=== PATIENT | male | born 1970 | race Caucasian/White ===

== ENCOUNTER 2019-12-08 15:33 | Emergency (ER) | payer OTHER ==
[~2019-12-08] VITALS: Ht 172.7 cm; Wt 104.3 kg
--- NOTE | 2019-12-08 16:10 | Emergency Room Report ---
History of Present Illness General Chief Complaint: Abdominal Pain Source: Patient Present Illness HPI Patient presents with complaints of right lower abdominal pain Reports that he had contacted the [place] triage line and told about possible appendix infection Pain started around 11:00 about 5 hours prior to arrival Patient reports vomiting denies any diarrhea Reports that he has had kidney stones in the past however this feels different and localized to the right lower quadrant denies any testicular pain denies any dysuria frequency denies any trauma Allergies: Coded Allergies: ASPIRIN (Verified Allergy, Unknown, 12/08/19) Patient History Past Medical History: see triage record Reviewed Nursing Documentation: PMH: Agreed; PSxH: Agreed Nursing Documentation-PMH Hx Gastrointestinal Problems: No - kidney stones Review of Systems All Other Systems: negative except mentioned in HPI Physical Exam Vital Signs Date Time Temp Pulse Resp B/P (MAP) Pulse Ox O2 Delivery O2 Flow Rate FiO2 12/08/19 15:50 97.9 69 18 153/80 (104) 97 Room Air Sp02 EP Interpretation: reviewed, normal General Appearance: mild distress - In pain Head: normocephalic, atraumatic Eyes: bilateral eye PERRL, bilateral eye EOMI ENT: EOM grossly intact Neck: supple, no bony tend Respiratory: lungs clear, no respiratory distress, no retraction Cardiovascular #1: regular rate, rhythm Gastrointestinal: non tender - However subjectively points to the right lower quadrant, no mass, no bruit, no guarding, no pulsatile mass, no rebound Genitourinary: no CVA tenderness Musculoskeletal: normal inspection Neurologic: alert, oriented x3 Psychiatric: normal inspection Skin: no rash Lymphatic: normal inspection Medical Decision Making Diagnostic Impression: Primary Impression: Renal colic on right side ER Course With the history exam and presentation, multiple differentials considered, including but not limited to appendicitis, gastritis, cholecystitis, diverticulitis Patient's blood work shows a mildly elevated white blood cell count given the patient's history of kidney stones kidney stone also considered highly CT imaging at this time does confirm to stones in the urethral area the larger one more distal left 5 mm Patient has received further hydration and pain medicine On repeat evaluation is pain-free and feels significantly improved patient is being followed for previous kidney stones at the [place] as well Copy of his records were provided patient remains afebrile nonseptic nontoxic appearing and will have initial conservative outpatient trial Labs Test 12/08/19 16:17 White Blood Count 12.4 K/UL (4.8-10.8) Red Blood Count 5.11 M/UL (4.70-6.10) Hemoglobin 14.5 G/DL (14.2-18.0) Hematocrit 46.9 % (42.0-52.0) Mean Corpuscular Volume 92 FL (80-99) Mean Corpuscular Hemoglobin 28.4 PG (27.0-31.0) Mean Corpuscular Hemoglobin Concent 31.0 G/DL (32.0-36.0) Red Cell Distribution Width 12.9 % (11.6-14.8) Platelet Count 193 K/UL (150-450) Mean Platelet Volume 11.6 FL (6.5-10.1) Neutrophils (%) (Auto) 76.3 % (45.0-75.0) Lymphocytes (%) (Auto) 14.0 % (20.0-45.0) Monocytes (%) (Auto) 6.2 % (1.0-10.0) Eosinophils (%) (Auto) 2.6 % (0.0-3.0) Basophils (%) (Auto) 1.0 % (0.0-2.0) Urine Color Yellow Urine Appearance Clear Urine pH 6.5 (4.5-8.0) Urine Specific [place] 1.025 (1.005-1.035) Urine Protein 2+ (NEGATIVE) Urine Glucose (UA) Negative (NEGATIVE) Urine Ketones Negative (NEGATIVE) Urine Blood 1+ (NEGATIVE) Urine Nitrite Negative (NEGATIVE) Urine Bilirubin Negative (NEGATIVE) Urine Urobilinogen Normal MG/DL (0.0-1.0) Urine Leukocyte Esterase 1+ (NEGATIVE) Urine RBC 0-2 /HPF (0 - 0) Urine WBC 0-2 /HPF (0 - 0) Urine Squamous Epithelial Cells None /LPF (NONE/OCC) Urine Transitional Epithelial Cells /LPF (NONE) Urine Calcium Carbonate Crystals /LPF (NONE) Urine Calcium Oxalate Crystals Few /LPF (NONE) Urine Bacteria Few /HPF (NONE) Sodium Level 139 MMOL/L (136-145) Potassium Level 4.1 MMOL/L (3.5-5.1) Chloride Level 103 MMOL/L (98-107) Carbon Dioxide Level 24 MMOL/L (21-32) Anion Gap 12 mmol/L (5-15) Blood Urea Nitrogen 20 mg/dL (7-18) Creatinine 1.3 MG/DL (0.55-1.30) Estimat Glomerular Filtration Rate 58.4 mL/min (>60) Glucose Level 135 MG/DL (74-106) Calcium Level 8.9 MG/DL (8.5-10.1) Total Bilirubin 0.3 MG/DL (0.2-1.0) Aspartate Amino Transf (AST/SGOT) 20 U/L (15-37) Alanine Aminotransferase (ALT/SGPT) 36 U/L (12-78) Alkaline Phosphatase 86 U/L (46-116) Total Protein 7.9 G/DL (6.4-8.2) Albumin 3.8 G/DL (3.4-5.0) Globulin 4.1 g/dL Albumin/Globulin Ratio 0.9 (1.0-2.7) Lipase 110 U/L (73-393) CT/MRI/US Diagnostic Results CT/MRI/US Diagnostic Results : Impression CT abdomen pelvisIMPRESSION: Two stones in the distal right ureter, the more distal measuring 5 mm and the more proximal measuring 3 mm. Resulting mild-moderate hydroureteronephrosis. Bilateral intrarenal stones. Last Vital Signs Date Time Temp Pulse Resp B/P (MAP) Pulse Ox O2 Delivery O2 Flow Rate FiO2 12/08/19 15:50 97.9 69 18 153/80 (104) 97 Room Air Status: improved Disposition: HOME, SELF-CARE Condition: Improved Scripts Tamsulosin HCl (Flomax) 0.4 Mg Cap.er.24h 0.4 MG ORAL DAILY for 7 Days, CAP Prov: Zack Mario DO 12/08/19 Hydrocodone Bit/Acetaminophen 5-325* (NORCO 5-325*) 1 Each Tablet 1 TAB ORAL Q6H PRN for For Pain, #10 TAB 0 Refills Prov: Zack Mario DO 12/08/19 Ibuprofen* (MOTRIN*) 600 Mg Tablet 600 MG ORAL Q8H PRN for For Pain, #20 TAB 0 Refills Prov: Zack Mario DO 12/08/19 Additional Instructions: Patient is provided with the discharge instructions notified to follow up with primary doctor in the next 2-3 days otherwise return to the er with any worsening symptoms. Please note that this report is being documented using [employer] technology. This can lead to erroneous entry secondary to incorrect interpretation by the dictating instrument. Zack Mario DO Dec 08, 2019 16:10
[2019-12-08] MEDS ORDERED: Omnipaque-300 100ml vial INJ PRN (16:15)
[2019-12-08] MEDS ORDERED: Morphine Sulfate 4mg/ml Inj (IV USE ONLY) IVP ONE ×2 (16:15→17:15)
[2019-12-08 16:20] VITALS: BP 151/75
[2019-12-08 16:43] LABS: EOSINOPHILS % (AUTO) 2.6 % (0.0-3.0); HEMATOCRIT 46.9 % (42.0-52.0); HEMOGLOBIN 14.5 G/DL (14.2-18.0); MEAN CORPUSCULAR VOLUME 92 FL (80-99); MONOCYTES % (AUTO) 6.2 % (1.0-10.0); NEUTROPHILS % (AUTO) 76.3 % (45.0-75.0); PLATELET COUNT 193 K/UL (150-450); RED BLOOD COUNT 5.11 M/UL (4.70-6.10); RED CELL DISTRIBUTION WIDTH 12.9 % (11.6-14.8); WHITE BLOOD COUNT 12.4 K/UL (4.8-10.8)
[2019-12-08 16:45] LABS: ANION GAP 12 mmol/L (5-15); BLOOD UREA NITROGEN 20 mg/dL (7-18); CALCIUM 8.9 MG/DL (8.5-10.1); CARBON DIOXIDE 24 MMOL/L (21-32); CHLORIDE 103 MMOL/L (98-107); CREATININE 1.3 MG/DL (0.55-1.30); POTASSIUM 4.1 MMOL/L (3.5-5.1); SODIUM 139 MMOL/L (136-145)
--- NOTE | 2019-12-08 16:50 | NUR ---
ED Nurse Note: Pt walked into ED w/ c/o abdominal pain R lower side. Pt has hx of kidney stones R side. Pt denies nuasea and vomiting, radiation to other areas. Pt is alert and orientedx4, ambulatory. and son at bedside. Pt is set up on monitor.
[2019-12-08 16:59] LABS: ALANINE AMINOTRANSFERASE 36 U/L (12-78); ALBUMIN 3.8 G/DL (3.4-5.0); ALBUMIN/GLOBULIN RATIO 0.9 (1.0-2.7); ALKALINE PHOSPHATASE 86 U/L (46-116); ASPARTATE AMINO TRANSFERASE 20 U/L (15-37); BILIRUBIN,TOTAL 0.3 MG/DL (0.2-1.0)
[2019-12-08 17:10] LABS: COLOR,URINE YELLOW
[2019-12-08] MEDS ORDERED: Ketorolac 30mg Inj IV ONE (17:15)
[2019-12-08 17:20] LABS: APPEARANCE,URINE CLEAR; GLUCOSE, URINE (UA) NEGATIVE (NEGATIVE); KETONES,URINE NEGATIVE (NEGATIVE); PH,URINE 6.5 (4.5-8.0); PROTEIN,URINE 2+ (NEGATIVE)
[2019-12-08 17:21] LABS: BILIRUBIN, URINE NEGATIVE (NEGATIVE); LEUKOCYTE ESTERASE ,URINE 1+ (NEGATIVE); NITRITE,URINE NEGATIVE (NEGATIVE); UROBILINOGEN,URINE NORMAL MG/DL (0.0-1.0)
[2019-12-08 18:30] VITALS: BP 141/72
--- NOTE | 2019-12-08 18:58 | Diagnostic Imaging Report ---
EXAM: CT Abdomen and Pelvis With Intravenous Contrast CLINICAL HISTORY: PAIN TECHNIQUE: Axial computed tomography images of the abdomen and pelvis with intravenous contrast. CTDI is 28.9 mGy and DLP is 1842.7 mGy-cm. One or more of the following dose reduction techniques were used: automated exposure control, adjustment of the mA and/or kV according to patient size, use of iterative reconstruction technique. COMPARISON: No relevant prior studies available. FINDINGS: Lung bases demonstrate mild subsegmental atelectasis. No acute infiltrate. The liver, biliary tree, pancreas, spleen, and adrenal glands are within normal limits. Two stones in the distal right ureter, the more distal measuring 5 mm and the more proximal measuring 3 mm. Resulting mild-moderate hydroureteronephrosis. Bilateral intrarenal stones. Colonic diverticula without diverticulitis. The appendix is unremarkable. No abdominal aortic aneurysm. Tiny fatty umbilical hernia. No acute fracture. IMPRESSION: Two stones in the distal right ureter, the more distal measuring 5 mm and the more proximal measuring 3 mm. Resulting mild-moderate hydroureteronephrosis. Bilateral intrarenal stones.
--- NOTE | 2019-12-08 19:10 | NUR ---
ED Nurse Note: Received report from Penelope TREJO. Pt alert and oriented, verbally responsive. Not in any distress. Family members at bedside.
--- NOTE | 2019-12-08 19:12 | NUR ---
ED Nurse Note: RT at bedside for breathing tx.
[2019-12-08] MEDS ORDERED: Albuterol ud Inhalation HHN ONE (19:15)
[2019-12-08] MEDS ORDERED: IBUPROFEN600 MG ORAL (20:11)
[2019-12-08] MEDS ORDERED: NORCO 5-325 TA1 EACH ORAL (20:11)
[2019-12-08] MEDS ORDERED: FLOMAX0.4 MG ORAL (20:11)
[2019-12-08 20:30] VITALS: BP 139/74
--- NOTE | 2019-12-08 20:30 | NUR ---
ED Nurse Note: Pt cleared by ERMD for discharge. DC instructions/prescription was given and explained to pt and verbalized understanding of teachings. All medical deviecs such as ID band and IV line removed. Pt is AAO x4, ambulatory and left with all personal belongings. Accompanied home by his and son.
== END 2019-12-08 20:30 | disposition home or self-care (01) ==
LOC: EMR 17:42
DX: N23 Unspecified renal colic (principal); Z88.6 Allergy status to analgesic agent; R11.10 Vomiting, unspecified; N20.0 Calculus of kidney
CPT/HCPCS: 36415; 74177; 80053; 81003; 83690; 85025; 96374; 96375; 96376; J1885; J2270; J2405; Q9967; Z7502; 99284

== ENCOUNTER 2019-12-10 10:06 | Inpatient (IN) | payer OTHER ==
[~2019-12-10] VITALS: Ht 172.7 cm; Wt 105.0 kg
[~2019-12-10 10:06] MED LIST: FLOMAX0.4 MG ORAL; IBUPROFEN600 MG ORAL; NORCO 5-325 TA1 EACH ORAL
[2019-12-10] MEDS ORDERED: Ketorolac 30mg Inj IV ONE (10:15)
--- NOTE | 2019-12-10 10:30 | NUR ---
ED Nurse Note: Patient presents to ER due to persistent right flank pain x 2 days; reports no N/V. Patient attempted to control pain with [place] and Flomax. Patient guarding the area. Patient awake, alert, orientd x 3. Regular, unlabored breathing noted.
--- NOTE | 2019-12-10 11:36 | Diagnostic Imaging Report ---
INDICATION: Abdominal pain TECHNIQUE: Continuous helical transaxial imaging of the abdomen and pelvis was obtained from the lung bases to the pubic symphysis. No intravenous contrast was administered. Coronal 2-D reformats were also obtained. Automatic Exposure Control was utilized. Total Dose length Product (DLP): [address] Dose Index Volume (CTDIvol): 37.3 mGy Comparison: none FINDINGS: Lungs: There is a 2 mm nodule at the peripheral left lung base image #1227. Additional 1 to 2 mm nodular focus noted at the right lung base-Image #9), and right middle lobe image #15. Liver: Unremarkable Gallbladder/biliary system: No gallstones are identified. There is no evidence of intrahepatic or extrahepatic biliary ductal dilatation. Spleen: Unremarkable Pancreas: Unremarkable Kidneys: There is a moderate right hydroureteronephrosis secondary to 2 stones in the distal right ureter at the UVJ the smaller of the tube is more proximal measures between 4 mm. The largest stone is right at the UVJ measures about 7 mm. There is perinephric and periureteral stranding. Tiny punctate nonobstructive stones are demonstrated within the calyces of both kidneys. The largest nonobstructive stone is about 3 mm in the left kidney. Adrenal glands: Unremarkable Bowel: Few sigmoid diverticula are noted. There is no evidence of acute diverticulitis. The appendix is normal. Bowel gas pattern appears nonobstructive. Bladder: Unremarkable Aorta/IVC: Unremarkable Peritoneum: There is a small right inguinal hernia containing fat. There is no free fluid within the abdomen or pelvis.. Bones: There is narrowing of intervertebral discs and accompanying endplate osteophyte formation. Hypertrophied facet joints also demonstrated. IMPRESSION: Mild to moderate right hydroureteronephrosis secondary to a 4 mm and 7 mm tendon stones demonstrated at the right UVJ. Multiple additional nonobstructing stones within both kidneys. Other additional findings as above Note: Evaluation of solid organs is limited on non contrast imaging. The CT scanner at [facility] is accredited by the [employer] and the scans are performed using dose optimization techniques as appropriate to a performed exam including Automatic Exposure control.
--- NOTE | 2019-12-10 11:58 | NUR ---
ED Nurse Note: Patient found sleeping in bed.
[2019-12-10] MEDS ORDERED: Albuterol ud Inhalation HHN ONE (12:30)
[2019-12-10 13:13] LABS: BASOPHILS % (AUTO) 1.4 % (0.0-2.0); EOSINOPHILS % (AUTO) 6.1 % (0.0-3.0); HEMATOCRIT 43.8 % (42.0-52.0); HEMOGLOBIN 14.8 G/DL (14.2-18.0); LYMPHOCYTES % (AUTO) 16.2 % (20.0-45.0); MEAN CORPUSCULAR VOLUME 86 FL (80-99); MONOCYTES % (AUTO) 7.8 % (1.0-10.0); NEUTROPHILS % (AUTO) 68.5 % (45.0-75.0); PLATELET COUNT 131 K/UL (150-450); RED BLOOD COUNT 5.08 M/UL (4.70-6.10); RED CELL DISTRIBUTION WIDTH 12.2 % (11.6-14.8); WHITE BLOOD COUNT 9.9 K/UL (4.8-10.8)
[2019-12-10 13:21] LABS: ANION GAP 11 mmol/L (5-15); BLOOD UREA NITROGEN 13 mg/dL (7-18); CALCIUM 8.6 MG/DL (8.5-10.1); CARBON DIOXIDE 27 MMOL/L (21-32); CHLORIDE 103 MMOL/L (98-107); CREATININE 1.5 MG/DL (0.55-1.30); POTASSIUM 3.8 MMOL/L (3.5-5.1); SODIUM 140 MMOL/L (136-145)
[2019-12-10 13:25] LABS: ALANINE AMINOTRANSFERASE 33 U/L (12-78); ALBUMIN 3.7 G/DL (3.4-5.0); ALBUMIN/GLOBULIN RATIO 0.9 (1.0-2.7); ALKALINE PHOSPHATASE 84 U/L (46-116); ASPARTATE AMINO TRANSFERASE 28 U/L (15-37); BILIRUBIN,TOTAL 0.8 MG/DL (0.2-1.0)
[2019-12-10] MEDS ORDERED: Morphine Sulfate 4mg/ml Inj (IV USE ONLY) IVP ONE (14:30)
--- NOTE | 2019-12-10 14:37 | Emergency Room Report ---
History of Present Illness General Chief Complaint: Abdominal Pain Source: Patient Present Illness HPI Patient presents with complaints of right flank pain patient was here recently with similar complaints was found to have 2 stones on the right side largest one at 5 mm Reports that the pain was improving however today again worsened Patient has had outpatient attempt now with increased pain medication Pain is worsening on the right side and coming towards the flank and lower abdomen Denies any obvious fevers he reports seeing some trace of blood in his urine Allergies: Coded Allergies: ASPIRIN (Verified Allergy, Unknown, 12/08/19) Patient History Past Medical History: see triage record Reviewed Nursing Documentation: PMH: Agreed; PSxH: Agreed Nursing Documentation-PMH Past Medical History: No History, Except For Hx Gastrointestinal Problems: No - kidney stones Review of Systems All Other Systems: negative except mentioned in HPI Physical Exam Vital Signs Date Time Temp Pulse Resp B/P (MAP) Pulse Ox O2 Delivery O2 Flow Rate FiO2 12/10/19 10:07 98.2 84 16 174/95 (121) 93 Room Air 12/10/19 12:37 21 Sp02 EP Interpretation: reviewed, normal General Appearance: mild distress - In acute pain Head: normocephalic, atraumatic Eyes: bilateral eye PERRL, bilateral eye EOMI ENT: EOM grossly intact Neck: supple, no meningismus Respiratory: no rhonchi, no retraction, no accessory muscle use Cardiovascular #1: regular rate, rhythm Gastrointestinal: non tender, soft Genitourinary: other - Right-sided CVA tenderness Musculoskeletal: normal inspection Neurologic: alert, oriented x3 Skin: no rash Lymphatic: normal inspection Medical Decision Making Diagnostic Impression: Primary Impression: Obstructive uropathy ER Course With the history exam and presentation, multiple differentials considered, including but not limited to appendicitis, gastritis, cholecystitis, diverticulitis Given the patient's history obstructive uropathy also entertained highly Given the discomfort CT imaging is repeated at this time it is read as 7 mm and 4 mm stone on the right distal UVJ given the patient's repeat presentation and increased discomfort He will require further inpatient care and urology consultation Labs Test 12/10/19 12:55 White Blood Count 9.9 K/UL (4.8-10.8) Red Blood Count 5.08 M/UL (4.70-6.10) Hemoglobin 14.8 G/DL (14.2-18.0) Hematocrit 43.8 % (42.0-52.0) Mean Corpuscular Volume 86 FL (80-99) Mean Corpuscular Hemoglobin 29.2 PG (27.0-31.0) Mean Corpuscular Hemoglobin Concent 33.9 G/DL (32.0-36.0) Red Cell Distribution Width 12.2 % (11.6-14.8) Platelet Count 131 K/UL (150-450) Mean Platelet Volume 10.1 FL (6.5-10.1) Neutrophils (%) (Auto) 68.5 % (45.0-75.0) Lymphocytes (%) (Auto) 16.2 % (20.0-45.0) Monocytes (%) (Auto) 7.8 % (1.0-10.0) Eosinophils (%) (Auto) 6.1 % (0.0-3.0) Basophils (%) (Auto) 1.4 % (0.0-2.0) Sodium Level 140 MMOL/L (136-145) Potassium Level 3.8 MMOL/L (3.5-5.1) Chloride Level 103 MMOL/L (98-107) Carbon Dioxide Level 27 MMOL/L (21-32) Anion Gap 11 mmol/L (5-15) Blood Urea Nitrogen 13 mg/dL (7-18) Creatinine 1.5 MG/DL (0.55-1.30) Estimat Glomerular Filtration Rate 49.5 mL/min (>60) Glucose Level 110 MG/DL (74-106) Calcium Level 8.6 MG/DL (8.5-10.1) Total Bilirubin 0.8 MG/DL (0.2-1.0) Aspartate Amino Transf (AST/SGOT) 28 U/L (15-37) Alanine Aminotransferase (ALT/SGPT) 33 U/L (12-78) Alkaline Phosphatase 84 U/L (46-116) Total Protein 8.0 G/DL (6.4-8.2) Albumin 3.7 G/DL (3.4-5.0) Globulin 4.3 g/dL Albumin/Globulin Ratio 0.9 (1.0-2.7) CT/MRI/US Diagnostic Results CT/MRI/US Diagnostic Results : Impression CT abdomen pelvisIMPRESSION: Mild to moderate right hydroureteronephrosis secondary to a 4 mm and 7 mm tendon stones demonstrated at the right UVJ. Multiple additional nonobstructing stones within both kidneys. Other additional findings as above Note: Evaluation of solid organs is limited on non contrast imaging. Last Vital Signs Date Time Temp Pulse Resp B/P (MAP) Pulse Ox O2 Delivery O2 Flow Rate FiO2 12/10/19 12:37 90 18 100 Room Air 21 81 18 95 12/10/19 10:54 98.3 12/10/19 10:07 174/95 (121) Status: improved Disposition: ADMITTED INPATIENT Condition: Serious Scripts Nitrofurantoin Monohyd/M-Cryst* (MACROBID 100 MG*) 100 Mg Capsule 100 MG ORAL EVERY 12 HOURS for 7 Days, #14 CAP Prov: Fausto Golden M.D. 12/12/19 Tamsulosin HCl (Flomax) 0.4 Mg Cap.er.24h 0.4 MG ORAL DAILY for 14 Days, #14 CAP Prov: Fausto Golden M.D. 12/12/19 Hydrocodone Bit/Acetaminophen 5-325* (NORCO 5-325*) 1 Each Tablet 1 TAB ORAL Q6H PRN for For Pain, #10 TAB 0 Refills Prov: Fausto Golden M.D. 12/12/19 Referrals: NON PHYSICIAN (PCP) Zack Mario DO Dec 10, 2019 14:37
[2019-12-10] MEDS ORDERED: PROZAC20 MG ORAL (14:57)
[2019-12-10] MEDS ORDERED: [UNRECOGNIZED DRUG - REMARK] ORAL (14:58)
[2019-12-10 15:00] VITALS: BP 145/76
--- NOTE | 2019-12-10 15:55 | NUR ---
ED Nurse Note: Report given to NEIL Gutierrez
--- NOTE | 2019-12-10 16:35 | NUR ---
NURSE NOTES: Patient arrived to the floor ambulating, no acute signs of distress noted. Patient is alert and oriented to person, time place and situation. Iv site is left AC clean dry and intact, saline locked. Patient given 1000ml of NS in ED and morphine for pain. Patient is able to make needs known, patient oriented to room and call light. Patient medications given to and took home. Belongings list signed and placed in the chart. Patient has Iphone at bedside. Patient denies pain at this time. will continue to monitor patient.
[2019-12-10] MEDS ORDERED: Zolpidem 5mg tab ORAL PRN (16:45)
[2019-12-10] MEDS ORDERED: Milk of Magnesia 30ml Ud ORAL PRN (16:45)
[2019-12-10] MEDS ORDERED: HYDROmorphone 1mg/ml Carpuject IVP PRN (16:45)
[2019-12-10] MEDS ORDERED: LORazepam Inj 2mg/ml 1ml IV PRN (16:45)
--- NOTE | 2019-12-10 19:36 | NUR ---
HAND-OFF: Report given to NEIL De Los Santos.
[2019-12-10 20:35] VITALS: BP 148/90
[2019-12-10] MEDS: Docusate 100mg cap ORAL SCH (20:54)
[2019-12-10] MEDS: Enoxaparin 40mg Inj SUBQ SCH (20:54)
[2019-12-10] MEDS: Albuterol/Ipratropium 3ml neb HHN PRN (21:11)
[2019-12-10 21:45] LABS: BILIRUBIN, URINE NEGATIVE (NEGATIVE); COLOR,URINE PALE YELLOW; GLUCOSE, URINE (UA) NEGATIVE (NEGATIVE); KETONES,URINE NEGATIVE (NEGATIVE); LEUKOCYTE ESTERASE ,URINE NEGATIVE (NEGATIVE); NITRITE,URINE NEGATIVE (NEGATIVE); PH,URINE 5 (4.5-8.0); PROTEIN,URINE NEGATIVE (NEGATIVE); UROBILINOGEN,URINE NORMAL MG/DL (0.0-1.0)
[2019-12-10 21:50] LABS: APPEARANCE,URINE SLIGHTLY CLOUDY
--- NOTE | 2019-12-10 22:30 | NUR ---
NURSE NOTES: Patient received in bed, asleep, arousable. No acute distress. IVF infusing. Made aware of urine collection, urinal and specimen cup provided for patient, verbalized understanding. Will continue to monitor. Addendum: 12/10/19 at 2231 by ASHLEY LAW RN RN Patient showered. Re-sited IV on left wrist because patient wants to bend his antecubital. Tolerated well. Will continue to monitor.
[2019-12-11] VITALS: BP 124/79
[2019-12-11 04:00] VITALS: BP 129/77
[2019-12-11 06:50] LABS: BASOPHILS % (AUTO) 1.2 % (0.0-2.0); HEMATOCRIT 36.5 % (42.0-52.0); LYMPHOCYTES % (AUTO) 24.3 % (20.0-45.0); MEAN CORPUSCULAR VOLUME 86 FL (80-99); MONOCYTES % (AUTO) 11.9 % (1.0-10.0); NEUTROPHILS % (AUTO) 51.6 % (45.0-75.0); PLATELET COUNT 148 K/UL (150-450); RED BLOOD COUNT 4.26 M/UL (4.70-6.10); RED CELL DISTRIBUTION WIDTH 12.2 % (11.6-14.8); WHITE BLOOD COUNT 7.8 K/UL (4.8-10.8)
[2019-12-11 07:09] LABS: ANION GAP 6 mmol/L (5-15); BLOOD UREA NITROGEN 14 mg/dL (7-18); CALCIUM 8.3 MG/DL (8.5-10.1); CARBON DIOXIDE 28 MMOL/L (21-32); CHLORIDE 106 MMOL/L (98-107); CREATININE 1.1 MG/DL (0.55-1.30); SODIUM 140 MMOL/L (136-145)
--- NOTE | 2019-12-11 07:30 | NUR ---
NURSE NOTES: Handoff received from NEIL De Los Santos. Patient observed sleeping in bed, IV site is running prescribed fluids, no acute signs of distress noted. bed in the low and locked position with call light on bedside table within reach, will continue to monitor patient.
--- NOTE | 2019-12-11 07:30 | NUR ---
HAND-OFF: Report given to Matt TREJO. Call placed to Dr. Garces's exchange re: pt migraine not relieved by tylenol; also change prn hhn to scheduled.
--- NOTE | 2019-12-11 07:47 | History and Physical ---
History of Present Illness General Date patient seen: Dec 11, 2019 Reason for Hospitalization: Abdominal Pain Present Illness HPI 49-year-old pleasant male with history of previous kidney stones status post lithotripsy presented to the ER with right flank pain. Patient was seen in the ER few days prior for similar complaints and was found to have 2 kidney stones about 2 and 5 mm in size on the right side. Patient was discharged with tamsulosin. His pain got progressively worse and he came back to the ER. He reports blood in urine. He has no difficulty urinating. He has severe pain. He denies fever, chills. Patient denies nausea, vomiting, diarrhea. Past medical history: Kidney stones, asthma Past surgical history: Multiple surgeries when he was in the [employer] in [facility], including on his extremities and abdomen Social history: Denies smoking tobacco, drinking EtOH or illicit drug use Family history: Denies any medical problems in the family Allergies: Coded Allergies: ASPIRIN (Verified Allergy, Unknown, 12/08/19) Medication History Scheduled Fluoxetine Hcl* (Prozac*), 20 MG ORAL DAILY, (Reported) Tamsulosin HCl (Flomax), 0.4 MG ORAL DAILY [asthma pill], 10 MG ORAL DAILY, (Reported) Scheduled PRN Hydrocodone Bit/Acetaminophen 5-325* (Max 5-325*), 1 TAB ORAL Q6H PRN for For Pain Ibuprofen* (Motrin*), 600 MG ORAL Q8H PRN for For Pain Patient History Healthcare decision maker Maria G Garsia Resuscitation status Chemical (Meds Only) Advanced Directive on File No Review of Systems Constitutional: Denies: no symptoms, see HPI, chills, sweats, fever, malaise, weakness, other Eye: Denies: no symptoms, see HPI, eye pain, blurred vision, tearing, double vision, nose pain, nose congestion, acuity changes, discharge, other ENT: Denies: no symptoms, see HPI, ear pain, ear discharge, nose pain, nose congestion, throat pain, throat swelling, mouth pain, hearing loss, nasal discharge, other Respiratory: Denies: no symptoms, see HPI, cough, orthopnea, shortness of breath, stridor, wheezing, [place], sputum, other Cardiovascular: Denies: no symptoms, see HPI, chest pain, edema, palpitations, syncope, PND, other Gastrointestinal: Denies: no symptoms, see HPI, abdominal pain, constipation, diarrhea, nausea, vomiting, melena, hematemesis, other Genitourinary: Reports: hematuria, pain Musculoskeletal: Reports: back pain - right side Skin: Denies: no symptoms, see HPI, rash, change in color, change in hair/nails , dryness, lesions, other Psychiatric: Denies: no symptoms, see HPI, prior hx, anxiety, depressed feelings, emotional problems, SI, HI, hallucinations, other Neurological: Denies: no symptoms, see HPI, headache, numbness, paresthesia, seizure, tingling, tremors, focal weakness, syncope, dizziness, other Endocrine: Denies: no symptoms, see HPI, excessive sweating, flushing, intolerance to temperature, increased thirst, increased urine, unexplained weight loss, other Hematologic/Lymphatic: Denies: no symptoms, see HPI, anemia, blood clots, easy bleeding, easy bruising, swollen glands, diathesis, other Physical Exam General Appearance: WD/WN, alert, moderate distress - Due to pain Lines, tubes and drains: peripheral HEENT: normocephalic, atraumatic, anicteric, PERRL, EOMI, other - Dry mucous membranes Neck: non-tender, normal alignment, supple, normal inspection Respiratory/Chest: chest wall non-tender, lungs clear, normal breath sounds, no respiratory distress, no accessory muscle use Cardiovascular/Chest: normal peripheral pulses, normal rate, regular rhythm, no gallop/murmur, no JVD Abdomen: normal bowel sounds, non tender, soft, no organomegaly, no mass Genitourinary/Rectal: other - Right CVA tenderness Extremities: normal range of motion, non-tender, normal inspection, no calf tenderness Skin Exam: normal pigmentation, warm/dry 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, no motor/sensory deficits, alert, oriented x 3, responsive Musculoskeletal: normal muscle bulk Last 24 Hour Vital Signs Date Time Temp Pulse Resp B/P (MAP) Pulse Ox O2 Delivery O2 Flow Rate FiO2 12/11/19 04:00 98.9 100 18 129/77 (94) 95 12/11/19 00:00 99.4 105 16 124/79 (94) 95 12/10/19 21:15 107 20 93 Room Air 21 12/10/19 21:12 110 18 95 Room Air 21 107 18 93 12/10/19 21:00 Room Air Room Air 12/10/19 20:35 98.9 99 14 148/90 (109) 95 12/10/19 17:40 Room Air Room Air 12/10/19 15:00 98.0 76 16 145/76 99 Room Air 12/10/19 12:37 90 18 100 Room Air 21 81 18 95 12/10/19 10:54 98.3 12/10/19 10:34 84 16 Room Air 12/10/19 10:07 98.2 84 16 174/95 (121) 93 Room Air Intake and Output 12/10/19 12/11/19 19:00 07:00 Intake Total 0 ml 1890 ml Balance 0 ml 1890 ml Intake Oral 0 ml 240 ml IV Total 1650 ml # Voids 1 Laboratory Tests Test 12/10/19 12:55 12/10/19 21:30 12/11/19 05:45 White Blood Count 9.9 K/UL (4.8-10.8) 7.8 K/UL (4.8-10.8) Red Blood Count 5.08 M/UL (4.70-6.10) 4.26 M/UL (4.70-6.10) L Hemoglobin 14.8 G/DL (14.2-18.0) 13.0 G/DL (14.2-18.0) L Hematocrit 43.8 % (42.0-52.0) 36.5 % (42.0-52.0) L Mean Corpuscular Volume 86 FL (80-99) 86 FL (80-99) Mean Corpuscular Hemoglobin 29.2 PG (27.0-31.0) 30.4 PG (27.0-31.0) Mean Corpuscular Hemoglobin Concent 33.9 G/DL (32.0-36.0) 35.5 G/DL (32.0-36.0) Red Cell Distribution Width 12.2 % (11.6-14.8) 12.2 % (11.6-14.8) Platelet Count 131 K/UL (150-450) L 148 K/UL (150-450) L Mean Platelet Volume 10.1 FL (6.5-10.1) 9.8 FL (6.5-10.1) Neutrophils (%) (Auto) 68.5 % (45.0-75.0) 51.6 % (45.0-75.0) Lymphocytes (%) (Auto) 16.2 % (20.0-45.0) L 24.3 % (20.0-45.0) Monocytes (%) (Auto) 7.8 % (1.0-10.0) 11.9 % (1.0-10.0) H Eosinophils (%) (Auto) 6.1 % (0.0-3.0) H 11.0 % (0.0-3.0) H Basophils (%) (Auto) 1.4 % (0.0-2.0) 1.2 % (0.0-2.0) Sodium Level 140 MMOL/L (136-145) 140 MMOL/L (136-145) Potassium Level 3.8 MMOL/L (3.5-5.1) 4.0 MMOL/L (3.5-5.1) Chloride Level 103 MMOL/L (98-107) 106 MMOL/L (98-107) Carbon Dioxide Level 27 MMOL/L (21-32) 28 MMOL/L (21-32) Anion Gap 11 mmol/L (5-15) 6 mmol/L (5-15) Blood Urea Nitrogen 13 mg/dL (7-18) 14 mg/dL (7-18) Creatinine 1.5 MG/DL (0.55-1.30) H 1.1 MG/DL (0.55-1.30) Estimat Glomerular Filtration Rate 49.5 mL/min (>60) > 60 mL/min (>60) Glucose Level 110 MG/DL (74-106) H 113 MG/DL (74-106) H Calcium Level 8.6 MG/DL (8.5-10.1) 8.3 MG/DL (8.5-10.1) L Total Bilirubin 0.8 MG/DL (0.2-1.0) Aspartate Amino Transf (AST/SGOT) 28 U/L (15-37) Alanine Aminotransferase (ALT/SGPT) 33 U/L (12-78) Alkaline Phosphatase 84 U/L (46-116) Total Protein 8.0 G/DL (6.4-8.2) Albumin 3.7 G/DL (3.4-5.0) Globulin 4.3 g/dL Albumin/Globulin Ratio 0.9 (1.0-2.7) L Urine Color Pale yellow Urine Appearance Slightly cloudy Urine pH 5 (4.5-8.0) Urine Specific [place] 1.010 (1.005-1.035) Urine Protein Negative (NEGATIVE) Urine Glucose (UA) Negative (NEGATIVE) Urine Ketones Negative (NEGATIVE) Urine Blood 4+ (NEGATIVE) H Urine Nitrite Negative (NEGATIVE) Urine Bilirubin Negative (NEGATIVE) Urine Urobilinogen Normal MG/DL (0.0-1.0) Urine Leukocyte Esterase Negative (NEGATIVE) Urine RBC 20-30 /HPF (0 - 0) H Urine WBC 2-4 /HPF (0 - 0) Urine Squamous Epithelial Cells None /LPF (NONE/OCC) Urine Bacteria Few /HPF (NONE) Height (Feet): 5 Height (Inches): 8.00 Weight (Pounds): 224 Medications Current Medications Medications (Trade) Dose Ordered Sig/Nhan Route PRN Reason Start Time Stop Time Status Last Admin Dose Admin Acetaminophen (Tylenol) 650 mg Q4H PRN ORAL Mild Pain (Pain Scale 1-3) 12/10/19 16:45 01/09/20 16:44 12/11/19 04:53 Acetaminophen (Tylenol) 650 mg Q4H PRN ORAL fever 12/10/19 16:45 01/09/20 16:44 Albuterol/ Ipratropium (Albuterol/ Ipratropium) 3 ml Q4H PRN HHN Shortness of Breath 12/10/19 16:45 12/15/19 16:44 12/10/19 21:11 Dextrose (Dextrose 50%) 25 ml Q30M PRN IV Hypoglycemia 12/10/19 16:45 01/09/20 16:44 Dextrose (Dextrose 50%) 50 ml Q30M PRN IV Hypoglycemia 12/10/19 16:45 01/09/20 16:44 Docusate Sodium (Colace) 100 mg EVERY 12 HOURS ORAL 12/10/19 21:00 01/09/20 20:59 Enoxaparin Sodium (Lovenox) 40 mg Q24H SUBQ 12/10/19 21:00 01/09/20 20:59 Fluoxetine HCl (PROzac) 20 mg DAILY ORAL 12/11/19 09:00 01/10/20 08:59 Hydromorphone HCl (Dilaudid) 1 mg Q4H PRN IVP Moderate Pain (Pain Scale 4-6) 12/10/19 16:45 12/17/19 16:44 Hydromorphone HCl (Dilaudid) 2 mg Q4H PRN IVP Severe Pain (Pain Scale 7-10) 12/10/19 16:45 12/17/19 16:44 12/11/19 00:17 Lorazepam (Ativan 2mg/ml 1ml) 0.5 mg Q4H PRN IV For Anxiety 12/10/19 16:45 12/17/19 16:44 Magnesium Hydroxide (Mom) 30 ml HSPRN PRN ORAL Constipation 12/10/19 16:45 01/09/20 16:44 Ondansetron HCl (Zofran) 4 mg Q6H PRN IVP Nausea & Vomiting 12/10/19 16:45 01/09/20 16:44 Sodium Chloride 1,000 ml @ 150 mls/hr Q6H40M IVLG 12/10/19 17:36 01/09/20 17:35 12/11/19 06:34 Tamsulosin HCl (Flomax) 0.4 mg DAILY ORAL 12/11/19 09:00 01/10/20 08:59 Zolpidem Tartrate (Ambien) 5 mg HSPRN PRN ORAL Insomnia 12/10/19 16:45 12/17/19 16:[address] abdomen pelvis: Mild to moderate right hydroureteronephrosis secondary to a 4 mm and 7 mm tendon stones demonstrated at the right UVJ. Multiple additional nonobstructing stones within both kidneys. Assessment/Plan Problem List: (1) Hydronephrosis of right kidney ICD Codes: N13.30 - Unspecified hydronephrosis SNOMED: 78128272 (2) Kidney calculi ICD Codes: N20.0 - Calculus of kidney SNOMED: 24133724 (3) DADA (acute kidney injury) ICD Codes: N17.9 - Acute kidney failure, unspecified SNOMED: 6061749, 11501489 (4) Hematuria ICD Codes: R31.9 - Hematuria, unspecified SNOMED: 95456987 Status: stable Assessment/Plan: 49-year-old male with history of asthma and kidney stones presented with intractable pain from recurrent stones. His CT abdomen pelvis revealed mild to moderate right hydroureteronephrosis secondary to a 4 mm and 7 mm tendon stones demonstrated at the right UVJ. Multiple additional nonobstructing stones within both kidneys. #Multiple kidney stones, largest measuring 7 mm at the right UVJ #Intractable pain #Right moderate hydronephrosis #Hematuria Admit to MedSurg IV fluids Avoid NSAIDs due to DADA IV Dilaudid as needed for pain control Continue tamsulosin Urology consultation with Dr. Kenneth Bolden #DADA Monitor renal function avoid nephrotoxic medications IV hydration Nephrology consult if creatinine does not improve by tomorrow #Asthma Continue home Symbicort, montelukast Duonebs as needed #Obesity Counseled on lifestyle modification and weight loss VTE prophylaxis: Lovenox 40 mg subcu daily GI prophylaxis: Not indicated CODE STATUS full code I spent 72 minutes on this encounter. Greater than 50% spent on counseling care coordination. Case discussed with Dr. Kenneth Bolden who will see this patient in urology consultation. Fausto Golden M.D. Dec 11, 2019 07:47
[2019-12-11 08:00] VITALS: BP 136/68
[2019-12-11] MEDS: Docusate 100mg cap ORAL SCH ×2 (09:12→20:00)
[2019-12-11] MEDS: Tamsulosin 0.4mg cap ORAL SCH (09:12)
--- NOTE | 2019-12-11 11:00 | NUR ---
NURSE NOTES: Patient complaining of acid reflux, says he believes it was from taking the medicine. Gave patient some milk and told him to let me know if patient is till experiencing acid reflux.
[2019-12-11 12:00] VITALS: BP 160/90
[2019-12-11] MEDS ORDERED: Morphine Sulfate 2mg/ml Inj(IV/IM USE ONLY) IVP PRN ×2 (12:00)
--- NOTE | 2019-12-11 14:52 | NUR ---
CHARGE NURSE NOTE: Spoke with urologist . He will see patient today evening time, or tomorrow morning. Patient was notified.
--- NOTE | 2019-12-11 15:50 | NUR ---
CASE MANAGEMENT: INITIAL REVIEW 49YR OLD MALE FROM HOME CC: RIGHT FLANK PAIN . UNABLE TO VOID X3DAY, ABD PAIN SI:HYDRONEPHROSIS OF RIGHT KIDNEY . DADA . HEMATURIA . KIDNEY CALCULI 98.3 84 16 174/95 93% ON RA PLT 131 CREAT 1.5 IS:IVF NS BOLUS X1 IV TORADOL X1 PROVENTIL HHN X1 CT ABD/PEL - (+) KIDNEY STONES X2 (RIGHT DISTAL URETER) \:4E MED SURG UNIT PLAN: IVF CONTROL PAIN CONT TAMSULOSIN UROLOGY CONSULT MONITOR RENAL FUNCTION NEPHROLOGY CONSULT IF CREAT LEVEL NOT IMPROVING DUONEB TX COUNSELED ON LIFESTYLE MODIFICATION AND WEIGHT LOSS CASE MANAGEMENT: REVIEW 12/11/2019 SI:HYDRONEPHROSIS OF RIGHT KIDNEY . DADA . HEMATURIA . KIDNEY CALCULI 97.7 94 20 160/90 97% ON RA CA+ 8.3 PLT 148 IS:IVF NS @150ML/HR FLOMAX PO QD ALBUTEROL Q4HR/PRN LOVENOX SQ Q24HR COLACE PO BID \:4E MED SURG UNIT PLAN: IVF CONTROL PAIN CONT TAMSULOSIN UROLOGY CONSULT MONITOR RENAL FUNCTION NEPHROLOGY CONSULT IF CREAT LEVEL NOT IMPROVING DUONEB TX COUNSELED ON LIFESTYLE MODIFICATION AND WEIGHT LOSS
--- NOTE | 2019-12-11 15:56 | NUR ---
NURSE NOTES: Patient requested breathing treatment, called RT to schedule PRN treatment for patient.
[2019-12-11 16:00] VITALS: BP 150/95
[2019-12-11] MEDS ORDERED: Montelukast 10mg tablet ORAL SCH (16:30)
[2019-12-11] MEDS: Albuterol/Ipratropium 3ml neb HHN PRN (16:59)
--- NOTE | 2019-12-11 19:39 | NUR ---
HAND-OFF: Report given to NEIL De Los Santos.
[2019-12-11 20:00] VITALS: BP 157/100
--- NOTE | 2019-12-11 20:00 | NUR ---
NURSE NOTES: Patient received in bed, awake and alert. No signs of distress. IVF infusing as ordered. Call light in reach, will continue to monitor.
[2019-12-11] MEDS: Enoxaparin 40mg Inj SUBQ SCH (20:03)
[2019-12-12] VITALS: BP 160/100
[2019-12-12 00:40] VITALS: BP 151/90
[2019-12-12 04:00] VITALS: BP 143/89
--- NOTE | 2019-12-12 07:19 | NUR ---
HAND-OFF: Report given to Isael TREJO.
--- NOTE | 2019-12-12 07:42 | NUR ---
NURSE NOTES: received report from NEIL De Los Santos. patient in bed. alert. oriented. verbally responsive. no respiratory distress noted. no c/o pain at this time ambulatory. skin intact. IV on Lwirst 22g running NS@150/hr. bed in the lowest position and locked. call light within reach. will continue to provide plan of care.
[2019-12-12 08:00] VITALS: BP 153/88
[2019-12-12] MEDS: Tamsulosin 0.4mg cap ORAL SCH (08:58)
[2019-12-12] MEDS: Docusate 100mg cap ORAL SCH (08:58)
[2019-12-12 12:00] VITALS: BP 144/95
[2019-12-12] MEDS ORDERED: NITROFURANTOIN100 M2 ORAL (13:15)
[2019-12-12] MEDS ORDERED: NORCO 5-325 TA1 EACH ORAL (13:15)
[2019-12-12] MEDS ORDERED: FLOMAX0.4 MG ORAL (13:15)
--- NOTE | 2019-12-12 13:16 | Discharge Summary ---
Discharge Summary Hospital Course Date of Admission Dec 10, 2019 at 13:45 Date of Discharge 12/12/2019 Admitting Diagnosis obstructive uropathy HPI Anselmo Garsia is a 49 year old male who was admitted on Dec 10, 2019 at 13:45 for Obstructive Uropathy Hospital Course 49-year-old male with history of asthma and kidney stones presented with intractable pain from recurrent stones. His CT abdomen pelvis revealed mild to moderate right hydroureteronephrosis secondary to a 4 mm and 7 mm tendon stones demonstrated at the right UVJ. Multiple additional nonobstructing stones within both kidneys. #Multiple kidney stones, largest measuring 7 mm at the right UVJ #Intractable pain #Right moderate hydronephrosis #Hematuria Admit to MedSurg IV fluids Avoid NSAIDs due to DADA IV Dilaudid as needed for pain control Continue tamsulosin Urology consultation with Dr. Kenneth Bolden #DADA Monitor renal function avoid nephrotoxic medications IV hydration Nephrology consult if creatinine does not improve by tomorrow #Asthma Continue home Symbicort, montelukast Duonebs as needed #Obesity Counseled on lifestyle modification and weight loss VTE prophylaxis: Lovenox 40 mg subcu daily GI prophylaxis: Not indicated CODE STATUS full code I spent 72 minutes on this encounter. Greater than 50% spent on counseling care coordination. Case discussed with Dr. Kenneth Bolden who will see this patient in urology consultation. Discharge Discharge Disposition Patient was discharged to Fausto Golden M.D. Dec 12, 2019 13:16
--- NOTE | 2019-12-12 15:09 | NUR ---
NURSE NOTES: patient discharged to home with stable condition by himself. A&Ox4. no respiratory distress noted. no c/o pain at this time. provided dc packet. checked and counted belongings with patient. obtained sign. removed IV and ID band. patient received medications macrobid PO and flomax PO as ordered. patient has a prescription for pain medication from [facility].
--- NOTE | 2019-12-12 15:45 | Consultation ---
DATE OF CONSULTATION: 12/12/2019 CONSULTING PHYSICIAN: Kenneth Bolden M.D. REASON FOR CONSULTATION: Ureteral stone. HISTORY OF PRESENT ILLNESS: The patient was seen on 12/12/2019. He was admitted with right flank pain. CT urogram showed 2 small stones 4 and 7 mm in the distal UVJ on the right side. The patient was admitted for hydration and pain medications. He is currently feeling better. Pain is well controlled, almost nonexistent and resting comfortably in bed. MEDICATION LIST: Reviewed. ALLERGIES: Reviewed. REVIEW OF SYMPTOMS: Essentially negative except for mild right CVA tenderness. PHYSICAL EXAMINATION: LUNGS: Clear to auscultation. CARDIOVASCULAR: Regular rate and rhythm. ABDOMEN: Soft. Slightly distended. Nontender. No suprapubic tenderness. No CVA tenderness. SCROTAL: Normal. DIAGNOSTIC AND LABORATORY DATA: CAT scan was reviewed and showed the above findings of 4 and 7 mm stone with mild hydro on the right side. Also additional small stones in the kidney. His laboratory data showed white count of 7.8. Chemistry showed a creatinine of 1.1, which is down from 1.5 and also urine shows 20 to 30 red cells and no white cells. ASSESSMENT AND PLAN: The patient has small distal ureteral right stones. I think he will be able to pass them. He is feeling stable and should be discharged home today. He needs to go with Flomax 0.4 mg daily and prophylactic nitrofurantoin 100 mg once a day. I gave him my contact and he should see me in the office on Tuesday. If the stones will not pass within the next 5 to 7 days, he should have retrograde intrarenal surgery. Kenneth Bolden M.D. DR: IRAM JOB#: [id number] CC:
--- NOTE | 2019-12-14 11:13 | NUR ---
*-* INSURANCE *-* ALL CLINICALS AND REVIEWS HAVE BEEN FAXED TO: [facility] TO
== END 2019-12-12 15:00 | disposition home or self-care (01) | DRG 694 ==
LOC: EMR 10:50 → 4E 13:45 → EDBEDREQ 14:15 → 4E 16:24
DX: N13.2 Hydronephrosis with renal and ureteral calculous obstruction (principal); N17.9 Acute kidney failure, unspecified; Z79.82 Long term (current) use of aspirin; R31.9 Hematuria, unspecified; J45.909 Unspecified asthma, uncomplicated; E66.9 Obesity, unspecified
CPT/HCPCS: 36415; 74176; 80048; 80053; 81003; 85025; 94640; 94664; 96361; 96374; 96375; 99285; J2405; J7030; J7620

== ENCOUNTER 2020-02-17 19:26 | Emergency (ER) | payer OTHER ==
[~2020-02-17] VITALS: Ht 172.7 cm; Wt 106.6 kg
[~2020-02-17 19:26] MED LIST changes: +NITROFURANTOIN100 M2 ORAL; +PROZAC20 MG ORAL; +[UNRECOGNIZED DRUG - REMARK] ORAL
[2020-02-17] MEDS ORDERED: MONTELUKAST SOD10 MG ORAL (19:51)
[2020-02-17] MEDS ORDERED: ALBUTEROL2.5 MG/3 M INH (19:51)
[2020-02-17 19:55] VITALS: BP 155/76
--- NOTE | 2020-02-17 19:55 | NUR ---
ED Nurse Note: Patient walked in from home d/t right flank pain 10/10 aching since this morning, hx of kidney stones. patient aao x 4 and ambulatory. Patient reports nausea and vomiting x 4. Patient stable upon assessment.
[2020-02-17] MEDS ORDERED: Morphine Sulfate 4mg/ml Inj (IV USE ONLY) IVP ONE ×2 (20:15→21:15)
--- NOTE | 2020-02-17 20:18 | NUR ---
ED Nurse Note: Patient returned from CT in stable condition.
[2020-02-17 20:26] LABS: BASOPHILS % (AUTO) 1.3 % (0.0-2.0); EOSINOPHILS % (AUTO) 0.7 % (0.0-3.0); HEMATOCRIT 44.3 % (42.0-52.0); HEMOGLOBIN 14.5 G/DL (14.2-18.0); LYMPHOCYTES % (AUTO) 8.9 % (20.0-45.0); MEAN CORPUSCULAR VOLUME 89 FL (80-99); MONOCYTES % (AUTO) 5.5 % (1.0-10.0); NEUTROPHILS % (AUTO) 83.6 % (45.0-75.0); PLATELET COUNT 188 K/UL (150-450); WHITE BLOOD COUNT 14.4 K/UL (4.8-10.8)
[2020-02-17 20:30] LABS: APPEARANCE,URINE CLEAR; BILIRUBIN, URINE NEGATIVE (NEGATIVE); COLOR,URINE PALE YELLOW; GLUCOSE, URINE (UA) NEGATIVE (NEGATIVE); KETONES,URINE NEGATIVE (NEGATIVE); LEUKOCYTE ESTERASE ,URINE NEGATIVE (NEGATIVE); NITRITE,URINE NEGATIVE (NEGATIVE); PH,URINE 5 (4.5-8.0); PROTEIN,URINE 1+ (NEGATIVE); UROBILINOGEN,URINE NORMAL MG/DL (0.0-1.0)
[2020-02-17 20:31] LABS: ANION GAP 11 mmol/L (5-15); BLOOD UREA NITROGEN 22 mg/dL (7-18); CALCIUM 9.2 MG/DL (8.5-10.1); CARBON DIOXIDE 24 MMOL/L (21-32); CHLORIDE 97 MMOL/L (98-107); CREATININE 1.3 MG/DL (0.55-1.30); POTASSIUM 4.3 MMOL/L (3.5-5.1); SODIUM 132 MMOL/L (136-145)
[2020-02-17 20:36] LABS: ALANINE AMINOTRANSFERASE 30 U/L (12-78); ALBUMIN 3.9 G/DL (3.4-5.0); ALKALINE PHOSPHATASE 90 U/L (46-116); ASPARTATE AMINO TRANSFERASE 24 U/L (15-37); BILIRUBIN,TOTAL 0.3 MG/DL (0.2-1.0)
--- NOTE | 2020-02-17 20:41 | NUR ---
ED Nurse Note: Patient sleeping in bed, no acute distress noted.
--- NOTE | 2020-02-17 20:44 | Diagnostic Imaging Report ---
History: FLANK Exam: CT ABDOMEN + PELVIS Without Contrast Technique more: CTDI is 15.30 mGy and DLP is 825.20 mGy-cm. Technique more: One or more of the following dose reduction techniques were used: automated exposure control, adjustment of the mA and/or kV according to patient size, use of iterative reconstruction technique. Comparison: 12/10/2019 FINDINGS: Areas of atelectasis or scarring at the middle lobe and lingula again noted. The visualized lung bases are otherwise clear. The previously seen 2 stones within the distal right ureter are again noted and not significantly changed again associated with right hydroureteronephrosis not significantly changed. Asymmetric right perinephric stranding again seen. Bilateral nonobstructing intrarenal stones again noted. The other solid organs, gallbladder and abdominal aorta appear within limits on noncontrast imaging. No bowel dilation or free air. Normal caliber appendix without secondary signs. A few noninflamed colonic diverticula. No free fluid. IMPRESSION: The previously seen 2 stones within the distal right ureter are again noted and not significantly changed again associated with right hydroureteronephrosis not significantly changed. Asymmetric right perinephric stranding again seen. Bilateral nonobstructing intrarenal stones again noted.
--- NOTE | 2020-02-17 21:01 | NUR ---
ED Nurse Note: ERMD informed of pain 08/16.
[2020-02-17] MEDS ORDERED: Tamsulosin 0.4mg cap ORAL ONE (21:15)
--- NOTE | 2020-02-17 21:26 | Emergency Room Report ---
History of Present Illness General Chief Complaint: Abdominal Pain Source: Patient Present Illness HPI 49-year-old male presents the ED complaining of right-sided flank pain. Started this morning. Dull, 9 out of 10, radiating towards the front. States he has history of kidney stones. Denies fevers or chills. Notes nausea, denies vomiting. Denies chest pain or shortness of breath. No other aggravating relieving factors. Denies any other associated symptoms Allergies: Coded Allergies: ASPIRIN (Verified Allergy, Unknown, 12/08/19) COVID-19 Screening Contact w/high risk pt: No Recent Travel to affected area: No Experienced COVID-19 symptoms?: No Patient History Past Medical History: asthma Past Surgical History: none Pertinent Family History: none Social History: Denies: smoking, alcohol use, drug use Immunizations: UTD Reviewed Nursing Documentation: PMH: Agreed; PSxH: Agreed Nursing Documentation-PMH Hx Cardiac Problems: No Hx Asthma: Yes Hx Cancer: No Hx Gastrointestinal Problems: No Hx Neurological Problems: No Review of Systems All Other Systems: negative except mentioned in HPI Physical Exam Vital Signs Date Time Temp Pulse Resp B/P (MAP) Pulse Ox O2 Delivery O2 Flow Rate FiO2 02/17/20 19:45 98.1 74 20 158/77 (104) 97 Room Air Sp02 EP Interpretation: reviewed, normal General Appearance: no apparent distress, alert, GCS 15, non-toxic, obese Head: normocephalic, atraumatic Eyes: bilateral eye normal inspection, bilateral eye PERRL ENT: hearing grossly normal, normal pharynx, no angioedema, normal voice Neck: full range of motion, supple/symm/no masses Respiratory: chest non-tender, lungs clear, normal breath sounds, speaking full sentences Cardiovascular #1: regular rate, rhythm, no edema Cardiovascular #2: 2+ carotid (R), 2+ carotid (L), 2+ radial (R), 2+ radial (L) , 2+ dorsalis pedis (R), 2+ dorsalis pedis (L) Gastrointestinal: normal bowel sounds, soft, non-distended, no guarding, no rebound, tenderness - R CVA Rectal: deferred Genitourinary: normal inspection, CVA tenderness (R) Musculoskeletal: back normal, normal range of motion, gait/station normal, non- tender Neurologic: alert, motor strength/tone normal, oriented x3, sensory intact, responsive, speech normal Psychiatric: judgement/insight normal, memory normal, mood/affect normal, no suicidal/homicidal ideation Reflexes: 3+ bicep (R), 3+ bicep (L), 3+ tricep (R), 3+ tricep (L), 3+ knee (R) , 3+ knee (L) Skin: no rash Lymphatic: no adenopathy Medical Decision Making Diagnostic Impression: Primary Impression: Kidney stones ER Course Hospital Course 49-year-old M presents to ED with R flank pain Differential diagnosis includes-appendicitis, cholecystitis, kidney stone, pyelonephritis Clinical course Patient placed on stretcher. After initial history and physical I ordered labs , IV fluids, pain medications and CT scan Labs - no leukocytosis, electrolytes ok, LFTs normal, UA - hematuria, no UTI CT scan shows 2 stones in the right distal ureter without obstruction. Mild hydronephrosis noted. Unchanged from CT in December Patient admitted in December for kidney stone intractable pain. Pain was improved and subsequently discharged. Patient seen by urology. Was recommended that if stone did not clear patient would benefit from outpatient lithotripsy. Patient states he did follow-up with urology and currently waiting to be scheduled for the lithotripsy. Discussed with urology. No emergent indication for lithotripsy at this time. CT unchanged. Labs unremarkable. Pain improved. Will discharge home with meds. I will provide urology referral. Safe for discharge for close outpatient follow-up I feel this is a highly complex case requiring extensive working including EKG/ Rhythm strip, Xray/CT/US, Blood/urine lab work, repeat exams while in ED, and administration of strong opiates/narcotics for pain control, admission to hospital or close patient follow up. Diagnosis - kidney stone Stable and discharged to home with Rx [place], Flomax. Followup with PMD/ urology. Return to ED if symptoms recur or worsen Labs Test 02/17/20 19:59 02/17/20 20:07 White Blood Count 14.4 K/UL (4.8-10.8) Red Blood Count 5.00 M/UL (4.70-6.10) Hemoglobin 14.5 G/DL (14.2-18.0) Hematocrit 44.3 % (42.0-52.0) Mean Corpuscular Volume 89 FL (80-99) Mean Corpuscular Hemoglobin 29.0 PG (27.0-31.0) Mean Corpuscular Hemoglobin Concent 32.8 G/DL (32.0-36.0) Red Cell Distribution Width 13.0 % (11.6-14.8) Platelet Count 188 K/UL (150-450) Mean Platelet Volume 11.4 FL (6.5-10.1) Neutrophils (%) (Auto) 83.6 % (45.0-75.0) Lymphocytes (%) (Auto) 8.9 % (20.0-45.0) Monocytes (%) (Auto) 5.5 % (1.0-10.0) Eosinophils (%) (Auto) 0.7 % (0.0-3.0) Basophils (%) (Auto) 1.3 % (0.0-2.0) Sodium Level 132 MMOL/L (136-145) Potassium Level 4.3 MMOL/L (3.5-5.1) Chloride Level 97 MMOL/L (98-107) Carbon Dioxide Level 24 MMOL/L (21-32) Anion Gap 11 mmol/L (5-15) Blood Urea Nitrogen 22 mg/dL (7-18) Creatinine 1.3 MG/DL (0.55-1.30) Estimat Glomerular Filtration Rate 58.4 mL/min (>60) Glucose Level 132 MG/DL (74-106) Calcium Level 9.2 MG/DL (8.5-10.1) Total Bilirubin 0.3 MG/DL (0.2-1.0) Aspartate Amino Transf (AST/SGOT) 24 U/L (15-37) Alanine Aminotransferase (ALT/SGPT) 30 U/L (12-78) Alkaline Phosphatase 90 U/L (46-116) Total Protein 7.7 G/DL (6.4-8.2) Albumin 3.9 G/DL (3.4-5.0) Globulin 3.8 g/dL Albumin/Globulin Ratio 1.0 (1.0-2.7) Lipase 169 U/L (73-393) Urine Color Pale yellow Urine Appearance Clear Urine pH 5 (4.5-8.0) Urine Specific [place] 1.025 (1.005-1.035) Urine Protein 1+ (NEGATIVE) Urine Glucose (UA) Negative (NEGATIVE) Urine Ketones Negative (NEGATIVE) Urine Blood 1+ (NEGATIVE) Urine Nitrite Negative (NEGATIVE) Urine Bilirubin Negative (NEGATIVE) Urine Urobilinogen Normal MG/DL (0.0-1.0) Urine Leukocyte Esterase Negative (NEGATIVE) Urine RBC 0-2 /HPF (0 - 0) Urine WBC 0-2 /HPF (0 - 0) Urine Squamous Epithelial Cells None /LPF (NONE/OCC) Urine Bacteria Occasional /HPF (NONE) CT/MRI/US Diagnostic Results CT/MRI/US Diagnostic Results : Imaging Test Ordered: CT A/P Impression Comparison: 12/10/2019 FINDINGS: Areas of atelectasis or scarring at the middle lobe and lingula again noted. The visualized lung bases are otherwise clear. The previously seen 2 stones within the distal right ureter are again noted and not significantly changed again associated with right hydroureteronephrosis not significantly changed. Asymmetric right perinephric stranding again seen. Bilateral nonobstructing intrarenal stones again noted. The other solid organs, gallbladder and abdominal aorta appear within limits on noncontrast imaging. No bowel dilation or free air. Normal caliber appendix without secondary signs. A few noninflamed colonic diverticula. No free fluid. IMPRESSION: The previously seen 2 stones within the distal right ureter are again noted and not significantly changed again associated with right hydroureteronephrosis not significantly changed. Asymmetric right perinephric stranding again seen. Bilateral nonobstructing intrarenal stones again noted. Last Vital Signs Date Time Temp Pulse Resp B/P (MAP) Pulse Ox O2 Delivery O2 Flow Rate FiO2 02/17/20 19:55 78 22 Room Air 02/17/20 19:55 98.1 155/76 98 Status: improved Disposition: HOME, SELF-CARE Condition: Stable Scripts Hydrocodone Bit/Acetaminophen 5-325* (NORCO 5-325 TABLET*) 1 Each Tablet 1 TAB ORAL Q6H PRN for FOR PAIN, #12 TAB 0 Refills Prov: Enrico Kelsey MD 02/17/20 Tamsulosin HCl (Flomax) 0.4 Mg Cap.er.24h 0.4 MG ORAL DAILY, #10 CAP Prov: Enrico Kelsey MD 02/17/20 Referrals: NON PHYSICIAN (PCP) Enrico Kelsey MD Feb 17, 2020 21:25
[2020-02-17] MEDS ORDERED: NORCO 5-325 TA1 EAC1 ORAL (21:27)
[2020-02-17] MEDS ORDERED: FLOMAX0.4 MG ORAL (21:27)
[2020-02-17 21:31] VITALS: BP 148/75
--- NOTE | 2020-02-17 21:31 | NUR ---
ER DISCHARGE NOTE: Patient is cleared to be discharged per ERMD, pt is aox4, on room air, with stable vital signs. pt was given dc and prescription instructions, pt was able to verbalize understanding, pt id band and iv site removed intact without complications. pt is able to ambulate with steady gait. pt took all belongings. pt stable upon discharge.
== END 2020-02-17 21:31 | disposition home or self-care (01) ==
LOC: EMR 20:06
DX: N20.0 Calculus of kidney (principal); N13.30 Unspecified hydronephrosis; K57.90 Diverticulosis of intestine, part unspecified, without perforation or abscess without bleeding
CPT/HCPCS: 36415; 74176; 80053; 81003; 83690; 85025; 96361; 96374; 96375; 96376; J2270; J2405; J7030; Z7502; 99284